=== PATIENT | male | born 1950 | race African-American/Black ===

== ENCOUNTER 2020-05-16 15:21 | Emergency (ER) | payer OTHER, SELFPAY ==
[~2020-05-16] VITALS: Ht 188 cm; Wt 90.7 kg
[2020-05-16 15:24] VITALS: BP 127/92; Ht 188 cm; Wt 90.7 kg
== END 2020-05-16 17:51 | disposition home or self-care (01) ==
LOC: ED 15:21
DX: U07.1 COVID-19 (principal); I10 Essential (primary) hypertension; E11.9 Type 2 diabetes mellitus without complications; G40.909 Epilepsy, unspecified, not intractable, without status epilepticus
CPT/HCPCS: U0003